=== PATIENT | female | born 1990 | race Caucasian/White ===

== ENCOUNTER → 2018-05-01 | Outpatient (REF) ==
--- NOTE | 2018-05-01 17:02 | REP ---
LUMBAR SPINE SERIES, FOUR VIEWS: History: Degenerative disc disease. No comparison study. Findings: Lumbar vertebral body heights are preserved. Alignment is normal. There is no evidence of spondylolysis or spondylolisthesis. Pedicles and posterior elements are intact. There is degenerative disc space narrowing AT L3-4 and L4-5. This is mild in degree. Sacrum and SI joints are intact. Psoas margins are symmetric. Impression: Mild degenerative narrowing of the L3-4 and L4-5 disc spaces. Otherwise negative lumbar spine radiographs. Electronically Signed by Castillo Ochoa MD 05/01/2018 05:06 P
== END ==
LOC: M SMT 13:52
PROVIDERS: ATTEND Internal Medicine
DX: Z00.00 Encounter for general adult medical examination without abnormal findings (principal)

== ENCOUNTER 2020-11-17 08:37 | Emergency (ER) | payer OTHER ==
[~2020-11-17] VITALS: Ht 170.2 cm; Wt 148.6 kg
[2020-11-17 08:38] VITALS: BP 160/92
[2020-11-17] MEDS ORDERED: PHEN-239 PO (08:57)
[2020-11-17] MEDS ORDERED: BENZ200C70 PO (10:37)
[2020-11-17] MEDS ORDERED: DIFL150T PO (10:42)
== END 2020-11-17 11:06 | disposition home or self-care (01) ==
LOC: M ED 08:37
DX: J06.9 Acute upper respiratory infection, unspecified (principal); L29.8 Other pruritus; Z79.899 Other long term (current) drug therapy
CPT/HCPCS: 99282; U0003

== ENCOUNTER 2021-09-17 19:39 | Emergency (ER) | payer OTHER ==
[~2021-09-17] VITALS: Ht 170.2 cm; Wt 148.2 kg
[2021-09-17 19:39] VITALS: BP 142/100
[~2021-09-17 19:39] MED LIST: BENZ200C70 PO; DIFL150T PO; PHEN-239 PO
[2021-09-17] MEDS ORDERED: CETI-24 PO (20:19)
[2021-09-17] MEDS ORDERED: MONT10TA97 PO (20:19)
[2021-09-18] MEDS ORDERED: TIZA10TA PO (09:52)
[2021-09-18] MEDS ORDERED: ACET-907 PO (09:52)
[2021-09-18] MEDS ORDERED: LIDO2SOL17 PO (12:25)
== END 2021-09-17 22:08 | disposition left against medical advice (07) ==
LOC: M ED 19:39
DX: Z53.21 Procedure and treatment not carried out due to patient leaving prior to being seen by health care provider (principal)

== ENCOUNTER 2021-09-18 09:45 | Emergency (ER) | payer OTHER ==
[~2021-09-18] VITALS: Ht 170.2 cm; Wt 148.7 kg
[~2021-09-18 09:45] MED LIST changes: +CETI-24 PO; +MONT10TA97 PO
[2021-09-18] MEDS ORDERED: ACET-907 PO (09:52)
[2021-09-18] MEDS ORDERED: TIZA10TA PO (09:52)
[2021-09-18] MEDS ORDERED: LIDO2SOL17 PO (12:25)
[2021-09-18 12:29] VITALS: BP 132/83
== END 2021-09-18 12:10 | disposition home or self-care (01) ==
LOC: M ED 09:45
DX: J02.9 Acute pharyngitis, unspecified (principal); G47.33 Obstructive sleep apnea (adult) (pediatric)

== ENCOUNTER → 2021-10-01 | Outpatient (REF) ==
[~2021-10-01] MED LIST changes: +ACET-907 PO; +LIDO2SOL17 PO; +TIZA10TA PO
== END ==
LOC: M EMP 09:37
PROVIDERS: ATTEND Family Medicine
DX: Z11.52 Encounter for screening for COVID-19 (principal)

== ENCOUNTER 2021-12-26 02:16 | Emergency (ER) | payer OTHER ==
[~2021-12-26] VITALS: Ht 170.2 cm; Wt 149.4 kg
[2021-12-26] MEDS ORDERED: ACETAMINOPHEN 325 MG TAB PO ONE (09:00)
[2021-12-26 09:30] VITALS: BP 125/67
== END 2021-12-26 09:31 | disposition home or self-care (01) ==
LOC: M ED 02:16
DX: O9A.211 Injury, poisoning and certain other consequences of external causes complicating pregnancy, first trimester (principal); S29.012A Strain of muscle and tendon of back wall of thorax, initial encounter; X50.9XXA Other and unspecified overexertion or strenuous movements or postures, initial encounter; Y92.89 Other specified places as the place of occurrence of the external cause; Y99.0 Civilian activity done for income or pay; O99.351 Diseases of the nervous system complicating pregnancy, first trimester; G43.909 Migraine, unspecified, not intractable, without status migrainosus; Z3A.08 8 weeks gestation of pregnancy; Z79.899 Other long term (current) drug therapy

== ENCOUNTER 2021-12-30 14:24 | Emergency (ER) | payer BC, OTHER ==
[~2021-12-30] VITALS: Ht 170.2 cm; Wt 147.9 kg
[2021-12-30 15:59] LABS: BASO % 0.2 % (0.0-1.0); EOS # 0.1 10^3/uL (0.0-0.5); EOS % 0.8 % (0.0-3.0); HEMATOCRIT 41.3 % (36.0-47.0); HEMOGLOBIN 13.9 g/dl (12.0-15.5); LYMPH # 2.5 10^3/uL (1.5-5.0); MEAN CORPUSCULAR HEMOGLOBIN 30.8 pg (27.0-33.0); MEAN CORPUSCULAR HGB CONC 33.7 g/dl (32.0-36.5); MEAN CORPUSCULAR VOLUME 91.4 fl (80.0-96.0); MONO # 0.8 10^3/uL (0.0-0.8); MONO % 6.1 % (2.0-8.0); NEUTROPHILS # 8.9 10^3/uL (1.5-8.5); NEUTROPHILS % 72.2 % (36.0-66.0); PLATELET COUNT, AUTOMATED 257 10^3/uL (150-450); RED BLOOD COUNT 4.52 10^6/uL (4.00-5.40); WHITE BLOOD COUNT 12.3 10^3/uL (4.0-10.0)
[2021-12-30 18:00] VITALS: BP 140/87
== END 2021-12-30 18:05 | disposition home or self-care (01) ==
LOC: M ED 14:24
DX: O20.8 Other hemorrhage in early pregnancy (principal); Z3A.09 9 weeks gestation of pregnancy; Z88.8 Allergy status to other drugs, medicaments and biological substances

== ENCOUNTER → 2022-01-12 | Outpatient (CLI) | payer BC ==
[2022-01-12 15:46] LABS: HEMATOCRIT 37.9 % (36.0-47.0); MEAN CORPUSCULAR HEMOGLOBIN 30.7 pg (27.0-33.0); MEAN CORPUSCULAR HGB CONC 34.3 g/dl (32.0-36.5); MEAN CORPUSCULAR VOLUME 89.6 fl (80.0-96.0); PLATELET COUNT, AUTOMATED 259 10^3/uL (150-450); RED BLOOD COUNT 4.23 10^6/uL (4.00-5.40); WHITE BLOOD COUNT 13.2 10^3/uL (4.0-10.0)
[2022-01-12 17:06] LABS: HEPATITIS C VIRUS ABY INDEX < 0.0 INDEX (<0.8); HIV 1&2 SCREEN CENTAUR NEGATIVE (NEGATIVE)
[2022-01-12 17:21] LABS: GC DNA AMPLIFICATION NEGATIVE (NEGATIVE)
== END ==
LOC: M PLALAB 14:08
PROVIDERS: ATTEND Obstetrics & Gynecology
DX: Z34.80 Encounter for supervision of other normal pregnancy, unspecified trimester (principal); Z3A.00 Weeks of gestation of pregnancy not specified

== ENCOUNTER → 2022-02-17 | Outpatient (REF) | LOC: M LABSMTC 09:14 | PROVIDERS: ATTEND Family Medicine | DX: Z11.52 Encounter for screening for COVID-19 (principal) ==

== ENCOUNTER 2022-03-07 23:31 | Outpatient (CLI) | payer BC ==
[~2022-03-07] VITALS: Ht 170.2 cm; Wt 148.2 kg
[2022-03-07 23:51] VITALS: BP 156/86
[2022-03-08 00:06] VITALS: BP 134/74
[2022-03-08 00:14] LABS: APPEARANCE, URINE MANUAL CLEAR (CLEAR); COLOR, URINE MANUAL YELLOW (YELLOW)
[2022-03-08 00:15] LABS: BILIRUBIN, URINE MANUAL NEGATIVE (NEGATIVE); BLOOD URINE MANUAL NEGATIVE (NEGATIVE); GLUCOSE, URINE (UA) MANUAL NEGATIVE (NEGATIVE); KETONE, URINE MANUAL 2+ mg/dL (NEGATIVE); LEUKOCYTE ESTERASE, URINE MAN NEGATIVE (NEGATIVE); NITRITE, URINE MANUAL NEGATIVE (NEGATIVE); PROTEIN, URINE MANUAL NEGATIVE (NEGATIVE); UROBILINOGEN, URINE MANUAL NORMAL (NORMAL)
== END 2022-03-08 01:05 | disposition home or self-care (01) ==
LOC: M LDO 23:31
PROVIDERS: ATTEND Advanced Practice Midwife
DX: O26.892 Other specified pregnancy related conditions, second trimester (principal); R10.2 Pelvic and perineal pain; R25.2 Cramp and spasm; O99.212 Obesity complicating pregnancy, second trimester; E66.9 Obesity, unspecified; N89.8 Other specified noninflammatory disorders of vagina; Z3A.18 18 weeks gestation of pregnancy
CPT/HCPCS: 59025; 81002; 87070; 87086; G0463

== ENCOUNTER → 2022-03-16 | Outpatient (CLI) | payer BC | LOC: M WHC 14:04 | PROVIDERS: ATTEND Obstetrics & Gynecology | DX: Z34.80 Encounter for supervision of other normal pregnancy, unspecified trimester (principal) ==

== ENCOUNTER 2022-04-09 17:33 | Outpatient (CLI) | payer BC ==
[~2022-04-09] VITALS: Ht 170.2 cm; Wt 144.8 kg
[2022-04-09] MEDS ORDERED: PRENTAB9 PO (17:47)
[2022-04-09] MEDS ORDERED: HOME MED LIST COMPLETE! XX SCH (17:50)
[2022-04-09 17:58] VITALS: BP 113/60
[2022-04-09 19:06] VITALS: BP 110/62
== END 2022-04-09 20:45 | disposition home or self-care (01) ==
LOC: M LDO 17:33
PROVIDERS: ATTEND Obstetrics & Gynecology
DX: O26.892 Other specified pregnancy related conditions, second trimester (principal); W51.XXXA Accidental striking against or bumped into by another person, initial encounter; Y92.9 Unspecified place or not applicable; Y93.9 Activity, unspecified; Y99.9 Unspecified external cause status; Z3A.23 23 weeks gestation of pregnancy
CPT/HCPCS: 59025; G0463

== ENCOUNTER → 2022-04-13 | Outpatient (CLI) | payer BC ==
[~2022-04-13] MED LIST changes: +PRENTAB9 PO
== END ==
LOC: M RAD 12:47
PROVIDERS: ATTEND Advanced Practice Midwife
DX: Z34.02 Encounter for supervision of normal first pregnancy, second trimester (principal)

== ENCOUNTER 2022-04-29 13:54 | Emergency (ER) | payer BC ==
[~2022-04-29] VITALS: Ht 170.2 cm; Wt 153.0 kg
[2022-04-29 13:55] VITALS: BP 190/96
== END 2022-04-29 14:00 | disposition admitted as inpatient to this hospital (09) ==
LOC: M ED 13:54
DX: Z53.9 Procedure and treatment not carried out, unspecified reason (principal)

== ENCOUNTER 2022-04-29 14:11 | Outpatient (CLI) | payer BC ==
[~2022-04-29] VITALS: Ht 170.2 cm; Wt 153.6 kg
[2022-04-29 14:36] VITALS: BP 116/57
[2022-04-29 15:25] LABS: HEMATOCRIT 36.7 % (36.0-47.0); HEMOGLOBIN 12.2 g/dl (12.0-15.5); MEAN CORPUSCULAR HEMOGLOBIN 30.3 pg (27.0-33.0); MEAN CORPUSCULAR HGB CONC 33.2 g/dl (32.0-36.5); MEAN CORPUSCULAR VOLUME 91.3 fl (80.0-96.0); PLATELET COUNT, AUTOMATED 221 10^3/uL (150-450); RED BLOOD COUNT 4.02 10^6/uL (4.00-5.40); WHITE BLOOD COUNT 11.1 10^3/uL (4.0-10.0)
== END 2022-04-29 17:18 | disposition home or self-care (01) ==
LOC: M LDO 14:11
PROVIDERS: ATTEND Advanced Practice Midwife
DX: O26.892 Other specified pregnancy related conditions, second trimester (principal); M79.10 Myalgia, unspecified site; O99.212 Obesity complicating pregnancy, second trimester; E66.9 Obesity, unspecified; Y92.9 Unspecified place or not applicable; Y93.9 Activity, unspecified; Y99.9 Unspecified external cause status; Z3A.26 26 weeks gestation of pregnancy
CPT/HCPCS: 59025; 85027; 85460; G0463

== ENCOUNTER → 2022-05-03 | Outpatient (CLI) | payer BC | LOC: M WHC 13:26 | PROVIDERS: ATTEND Advanced Practice Midwife | DX: O99.212 Obesity complicating pregnancy, second trimester (principal) ==

== ENCOUNTER → 2022-05-17 | Outpatient (CLI) | payer BC ==
[2022-05-17 14:04] LABS: HEMATOCRIT 35.4 % (36.0-47.0); MEAN CORPUSCULAR HEMOGLOBIN 30.8 pg (27.0-33.0); MEAN CORPUSCULAR HGB CONC 33.9 g/dl (32.0-36.5); MEAN CORPUSCULAR VOLUME 90.8 fl (80.0-96.0); PLATELET COUNT, AUTOMATED 246 10^3/uL (150-450)
[2022-05-17 14:24] LABS: HEMOGLOBIN A1c 4.6 % (4.0-6.0)
[2022-05-17 15:26] LABS: GC DNA AMPLIFICATION NEGATIVE (NEGATIVE)
== END ==
LOC: M PLALAB 10:41
PROVIDERS: ATTEND Advanced Practice Midwife
DX: O99.212 Obesity complicating pregnancy, second trimester (principal)

== ENCOUNTER → 2022-06-09 | Outpatient (CLI) | payer BC | LOC: M WHC 14:36 | PROVIDERS: ATTEND Advanced Practice Midwife | DX: O99.213 Obesity complicating pregnancy, third trimester (principal); Z3A.32 32 weeks gestation of pregnancy ==

== ENCOUNTER → 2022-06-23 | Outpatient (REF) ==
[~2022-06-23] MED LIST changes: +LIDO15SO4 PO; -LIDO2SOL17 PO
[2022-06-23 13:44] LABS: RSV AMPLIFICATION NEGATIVE (NEGATIVE)
== END ==
LOC: M LABSMTC 10:47
PROVIDERS: ATTEND Family Medicine
DX: Z00.00 Encounter for general adult medical examination without abnormal findings (principal)

== ENCOUNTER → 2022-07-07 | Outpatient (REF) | payer BC | LOC: M PLALAB 15:55 | PROVIDERS: ATTEND Advanced Practice Midwife | DX: Z34.03 Encounter for supervision of normal first pregnancy, third trimester (principal); Z3A.00 Weeks of gestation of pregnancy not specified ==

== ENCOUNTER 2022-07-23 10:42 | Inpatient (IN) | payer BC ==
[2022-07-23] VITALS (11 sets, daily range): BP systolic 99–132; BP diastolic 55–79
[~2022-07-23] VITALS: Ht 170.2 cm; Wt 160.0 kg
[2022-07-23] MEDS ORDERED: HOME MED LIST COMPLETE! XX SCH (11:00)
[2022-07-23] MEDS ORDERED: PENICILLIN G POTASSIUM 5 MU IV 5 MU in D5W MINI-BAG PLUS 100 ML IV STA (11:29)
[2022-07-23] MEDS ORDERED: LIDOCAINE 1% MDV 20ML VIAL INFIL PRN (11:30)
[2022-07-23] MEDS ORDERED: OXYTOCIN DRIP 30 UNITS in IV 1 EA IV PRN (11:30)
[2022-07-23] MEDS ORDERED: miSOPROStol 50MCG 1/2 TABLET SL SCH (12:00)
[2022-07-23 12:30] LABS: HEMATOCRIT 38.9 % (36.0-47.0); HEMOGLOBIN 12.9 g/dl (12.0-15.5); MEAN CORPUSCULAR HEMOGLOBIN 30.1 pg (27.0-33.0); MEAN CORPUSCULAR HGB CONC 33.2 g/dl (32.0-36.5); MEAN CORPUSCULAR VOLUME 90.9 fl (80.0-96.0); PLATELET COUNT, AUTOMATED 245 10^3/uL (150-450); RED BLOOD COUNT 4.28 10^6/uL (4.00-5.40); WHITE BLOOD COUNT 12.8 10^3/uL (4.0-10.0)
[2022-07-23] MEDS: PEN G POT 3,000,000 UNIT/50 ML 3,000,000 UNIT in IV 1 EA IV SCH ×2 (16:04→20:31)
[2022-07-23] MEDS ORDERED: PROMETHAZINE 25MG/ML 1ML VIAL IV ONE (17:30)
[2022-07-23] MEDS ORDERED: BUTORPHANOL 2 MG/ML 1ML VIAL IV ONE (17:30)
[2022-07-23] MEDS ORDERED: OXYTOCIN DRIP 30 UNITS in IV 1 EA IV SCH (20:25)
[2022-07-23] MEDS: LR 1,000 ML IV SCH (23:21)
[2022-07-23] MEDS ORDERED: ACETAMINOPHEN 500 MG TAB PO PRN (23:35)
[2022-07-24] VITALS (52 sets, daily range): BP systolic 73–132; BP diastolic 38–72
[2022-07-24] MEDS: PEN G POT 3,000,000 UNIT/50 ML 3,000,000 UNIT in IV 1 EA IV SCH ×2 (00:22→05:41)
[2022-07-24] MEDS ORDERED: NALOXONE INJ 0.4MG/1ML VIAL IV PRN ×3 (00:55→10:20)
[2022-07-24] MEDS ORDERED: FENTANYL/ROPIVACAINE/NACL BAG 100 ML EPIDURAL SCH (00:55)
[2022-07-24] MEDS ORDERED: ONDANSETRON 4MG 2ML VIAL IV PRN ×3 (00:55→10:20)
[2022-07-24] MEDS ORDERED: diphenhydrAMINE 50MG/ML VIAL IV PRN ×2 (00:55→10:20)
[2022-07-24] MEDS ORDERED: EPIDURAL/PCA KEYS XX PRN (00:55)
[2022-07-24] MEDS ORDERED: LR 500 ML IV PRN (00:55)
[2022-07-24] MEDS: ePHEDrine SULFATE 25 MG/5 ML(5MG/ML) SYRINGE IVP PRN ×4 (03:06→03:29)
[2022-07-24] MEDS: LR 1,000 ML IV SCH ×3 (03:55→19:08)
[2022-07-24] MEDS ORDERED: BICITRA 30ML SOLN UDC PO ONE (07:55)
[2022-07-24] MEDS ORDERED: ceFAZolin SOD 3 GM IV Place Holder IV ONE (07:55)
[2022-07-24] MEDS ORDERED: ceFAZolin SOD 2 GM in IV 1 EA IV ONE (08:00)
[2022-07-24] MEDS ORDERED: LIDOCAINE 2% W/EPINEPHRINE 20ML VIAL **PRES FREE As Ordered ONE (08:42)
[2022-07-24] MEDS ORDERED: OXYTOCIN 30UNITS IN 0.9% NaCl 500ML IV BAG As Ordered ONE ×2 (08:42→10:25)
[2022-07-24] MEDS ORDERED: KETOROLAC 60MG 2ML VIAL As Ordered ONE (08:44)
[2022-07-24] MEDS ORDERED: ONDANSETRON 4MG 2ML VIAL As Ordered ONE (08:45)
[2022-07-24] MEDS ORDERED: MORPHINE PRES-FREE INJ 10 MG/10 ML VIAL As Ordered ONE (08:56)
[2022-07-24] MEDS ORDERED: ACETAMINOPHEN 1000MG 100ML IV BAG As Ordered ONE (08:56)
[2022-07-24] MEDS ORDERED: AZITHROMYCIN INJ 500 MG, VIAL MATE ADAPTER 1 EACH in NS 250 ML IV ONE (09:00)
[2022-07-24] MEDS ORDERED: ceFAZolin SOD 1 GM in D5W MINI-BAG PLUS 50 ML IV ONE (09:00)
[2022-07-24] MEDS ORDERED: METOCLOPRAMIDE INJ 10MG/2ML VIAL As Ordered ONE (09:24)
[2022-07-24 09:48] LABS: CORD GAS ABE A -3.6; CORD GAS ABE V -3.5; CORD GAS HCO3 A 23.8 MEQ/L; CORD GAS HCO3 V 22.9 MEQ/L; CORD GAS O2 SAT A 47.5 %; CORD GAS O2 SAT V 56.8 %; CORD GAS PCO2 A 52.2 mmHg; CORD GAS PCO2 V 45.9 mmHg; CORD GAS PH A 7.277 UNITS; CORD GAS PH V 7.315 UNITS; CORD GAS PO2 A 22.5 mmHg; CORD GAS PO2 V 24.9 mmHg; CORD GAS SBC A 20.3 MEQ/L; CORD GAS SBC V 20.6 MEQ/L; CORD GAS TCO2 A 25.4 MEQ/L; CORD GAS TCO2 V 24.3 MEQ/L
[2022-07-24] MEDS ORDERED: PERCOCET 5MG/325MG TAB PO PRN (10:20)
[2022-07-24] MEDS ORDERED: LR 1,000 ML IV SCH (10:20)
[2022-07-24] MEDS ORDERED: DOCUSATE SODIUM 100MG CAPSULE PO PRN (10:20)
[2022-07-24] MEDS ORDERED: OXYTOCIN DRIP 30 UNITS in IV 1 EA IV SCH (10:20)
[2022-07-24] MEDS ORDERED: METOCLOPRAMIDE INJ 10MG/2ML VIAL IV PRN (10:20)
[2022-07-24] MEDS ORDERED: RHOGAM 300MCG (1500IU) INJ IM SCH (10:20)
[2022-07-24] MEDS ORDERED: **NOTE PATIENT COMMENT** MISC XX SCH (10:20)
[2022-07-24] MEDS ORDERED: oxyCODONE 5MG TAB PO PRN (10:20)
[2022-07-24] MEDS: SLF 3 ML SYR IV SCH ×2 (10:20→19:08)
[2022-07-24] MEDS ORDERED: fentaNYL 100 MCG/2 ML INJECTION IV PRN (10:20)
[2022-07-24] MEDS: PRENATAL VITAMINS CHEWABLE TABLET PO SCH (12:00)
[2022-07-24] MEDS: KETOROLAC 30 MG/ML 1ML VIAL IV SCH ×2 (15:47→22:05)
[2022-07-25 02:00] VITALS: BP 102/60
[2022-07-25] MEDS: SLF 3 ML SYR IV SCH (02:20)
[2022-07-25] MEDS: PERCOCET 5MG/325MG TAB PO PRN ×4 (03:13→19:32)
[2022-07-25] MEDS: SIMETHICONE 80MG CHEW TAB PO PRN ×3 (03:24→19:05)
[2022-07-25] MEDS: KETOROLAC 30 MG/ML 1ML VIAL IV SCH (03:25)
[2022-07-25] MEDS ORDERED: OXYC1TAB23 PO (07:13)
[2022-07-25] MEDS ORDERED: IBUP80TA PO (07:13)
[2022-07-25] MEDS: PRENATAL VITAMINS CHEWABLE TABLET PO SCH (07:49)
[2022-07-25 07:50] LABS: MEAN CORPUSCULAR HEMOGLOBIN 31.1 pg (27.0-33.0); MEAN CORPUSCULAR HGB CONC 33.4 g/dl (32.0-36.5); PLATELET COUNT, AUTOMATED 213 10^3/uL (150-450); RED BLOOD COUNT 3.44 10^6/uL (4.00-5.40); WHITE BLOOD COUNT 12.4 10^3/uL (4.0-10.0)
[2022-07-25 08:01] LABS: HEMOGLOBIN 10.7 g/dl (12.0-15.5)
[2022-07-25 10:00] VITALS: BP 100/54
[2022-07-25] MEDS ORDERED: LR 1,000 ML IV SCH (11:45)
[2022-07-25] MEDS: IBUPROFEN 800 MG TAB PO SCH ×2 (11:49→19:31)
[2022-07-25 18:30] VITALS: BP 120/73
[2022-07-25 22:00] VITALS: BP 113/58
[2022-07-26 02:00] VITALS: BP 118/55
[2022-07-26] MEDS: IBUPROFEN 800 MG TAB PO SCH (03:33)
[2022-07-26] MEDS: PERCOCET 5MG/325MG TAB PO PRN ×2 (03:34→10:19)
[2022-07-26 06:00] VITALS: BP_SYST 110; BP_SYST 129; BP_DIAS 65; BP_DIAS 70
[2022-07-26] MEDS ORDERED: MEASLES,MUMPS,RUBELLA VACCINE INJ (MMR-II) SC.IMMUN ONE (09:00)
[2022-07-26] MEDS: PRENATAL VITAMINS CHEWABLE TABLET PO SCH (10:18)
[2022-07-26] MEDS ORDERED: COLA100C5 PO (10:25)
== END 2022-07-26 12:22 | disposition home or self-care (01) | DRG 540 ==
LOC: M LDO 10:42 → M LDI 11:11 → M OBS 07-24 11:45
PROVIDERS: ADMIT Specialist; ATTEND Specialist
PROC: 0UB70ZZ Excision of Bilateral Fallopian Tubes, Open Approach (ICD-10-PCS; 2022-07-24)
PROC: 10D00Z1 Extraction of Products of Conception, Low, Open Approach (ICD-10-PCS; principal; 2022-07-24 09:00)
DX: O62.0 Primary inadequate contractions (principal); O99.824 Streptococcus B carrier state complicating childbirth; Z3A.38 38 weeks gestation of pregnancy; O69.81X0 Labor and delivery complicated by cord around neck, without compression, not applicable or unspecified; Z37.0 Single live birth; Z30.2 Encounter for sterilization

== ENCOUNTER 2023-02-12 12:24 | Emergency (ER) | payer BC, MEDICAID, OTHER ==
[~2023-02-12] VITALS: Ht 170.2 cm; Wt 158.9 kg
[~2023-02-12 12:24] MED LIST changes: +COLA100C5 PO; +IBUP80TA PO; +LIDO15SO PO; -LIDO15SO4 PO; +OXYC1TAB23 PO
[2023-02-12] MEDS ORDERED: ACET325C5 PO (12:37)
[2023-02-12] MEDS ORDERED: NORCO, ANEXSIA 5/325MG TABLET (HYDROcodone/ACETAMINOPHEN) PO ONE (14:30)
[2023-02-12 14:39] VITALS: BP 131/76; TEMP 97.2; O2SAT 97
[2023-02-12] MEDS ORDERED: HYDR-3713 PO (14:53)
== END 2023-02-12 15:00 | disposition home or self-care (01) ==
LOC: M ED 12:24
DX: M62.89 Other specified disorders of muscle (principal); V49.40XA Driver injured in collision with unspecified motor vehicles in traffic accident, initial encounter; Y92.410 Unspecified street and highway as the place of occurrence of the external cause; Z88.8 Allergy status to other drugs, medicaments and biological substances

== ENCOUNTER 2023-05-26 11:35 | Emergency (ER) | payer MEDICAID, OTHER ==
[~2023-05-26] VITALS: Ht 170.2 cm; Wt 165.6 kg
[~2023-05-26 11:35] MED LIST changes: +ACET325C5 PO; +HYDR-3713 PO
[2023-05-26] MEDS ORDERED: IBUP-1022 PO (13:51)
[2023-05-26 14:15] VITALS: BP 131/66; TEMP 98; O2SAT 99
== END 2023-05-26 14:16 | disposition home or self-care (01) ==
LOC: M ED 11:35
DX: S93.402A Sprain of unspecified ligament of left ankle, initial encounter (principal); X50.0XXA Overexertion from strenuous movement or load, initial encounter; Y92.009 Unspecified place in unspecified non-institutional (private) residence as the place of occurrence of the external cause; Y93.89 Activity, other specified; Y99.8 Other external cause status; G43.909 Migraine, unspecified, not intractable, without status migrainosus; M54.50 Low back pain, unspecified; Z88.8 Allergy status to other drugs, medicaments and biological substances; Z79.899 Other long term (current) drug therapy

== ENCOUNTER 2023-11-06 08:53 | Emergency (ER) | payer OTHER ==
[~2023-11-06] VITALS: Ht 170.2 cm; Wt 158.9 kg
[~2023-11-06 08:53] MED LIST changes: +IBUP-1022 PO; -LIDO15SO PO; +LIDO15SO8 PO
[2023-11-06] MEDS ORDERED: NAPR500T6 PO (09:18)
[2023-11-06] MEDS: NORCO, ANEXSIA 5/325MG TABLET (HYDROcodone/ACETAMINOPHEN) PO ONE (13:13)
[2023-11-06] MEDS ORDERED: HYDR-3713 PO (13:16)
[2023-11-06 13:27] VITALS: BP 132/82; TEMP 96.7; O2SAT 100
== END 2023-11-06 13:29 | disposition home or self-care (01) ==
LOC: M ED 08:53
DX: S93.601A Unspecified sprain of right foot, initial encounter (principal); Y92.9 Unspecified place or not applicable; Y93.9 Activity, unspecified; Y99.0 Civilian activity done for income or pay; Z79.1 Long term (current) use of non-steroidal anti-inflammatories (NSAID); Z79.899 Other long term (current) drug therapy

== ENCOUNTER → 2023-12-08 | Outpatient (CLI) | payer OTHER ==
[~2023-12-08] MED LIST changes: +NAPR500T6 PO
== END ==
LOC: M RAD 06:56
PROVIDERS: ATTEND Physician Assistant Surgical
DX: M25.571 Pain in right ankle and joints of right foot (principal)

== ENCOUNTER 2024-07-20 11:32 | Emergency (ER) | payer OTHER ==
[~2024-07-20] VITALS: Ht 170.2 cm; Wt 170.2 kg
[~2024-07-20 11:32] MED LIST changes: +NAPR-1405 PO; -NAPR500T6 PO
[2024-07-20] MEDS ORDERED: CYCL-707 (11:38)
[2024-07-20] MEDS: ACETAMINOPHEN 500 MG TAB PO ONE (13:02)
[2024-07-20 15:01] VITALS: BP 131/81; TEMP 97.5; O2SAT 100
== END 2024-07-20 15:10 | disposition home or self-care (01) ==
LOC: M ED 11:32
DX: R07.89 Other chest pain (principal); Z88.8 Allergy status to other drugs, medicaments and biological substances; Z79.1 Long term (current) use of non-steroidal anti-inflammatories (NSAID); Z79.899 Other long term (current) drug therapy